=== PATIENT | female | born 1970 | race Hispanic/Latino ===

== ENCOUNTER → 2019-09-06 | Day surgery (SDC) | payer BC ==
[~2019-09-06] MED LIST: ACETAMINOPHEN 1000 MG/100 ML 100 ML IV ONE; AMOXICILLIN875 MG PO; BUPIVACAINE HCL 0.5% INJ 30 ML VIAL INJ ONE; DEXAMETHASONE SOD PHOS INJ 4 MG/ML VIAL ONE; FENTANYL CITRATE/PF 100MCG/2 ML INJ ONE; IBUPROFEN400 MG PO; LIDOCAINE HCL 2% LOCAL INJ 5 ML SDV VIAL INJ ONE; MIDAZOLAM HCL 2 MG/2 ML VIAL ONE; ONDANSETRON HCL INJ 2MG/ML 2ML 2 MG/ML VIAL ONE; PHENTERMINE H37.5 M1 PO; PROPOFOL IV EMULSION 10 MG/ML 20 ML VIAL ONE; SEVOFLURANE INHAL SOLN 250 ML PEN BTL ONE; TYLENOL PO
--- OUTSIDE RECORDS SUMMARY | 2019-09-06 07:02 | XMS REPORT | Summary of Care ---
Author Author Jodi Cain M.A. Unknown Address Unknown Phone Unavailable Care Team Providers Care Cherry Picker Operator Name Role Phone KERWIN Valladares, SYLWIA Unavailable Unavailable Jodi Cain M.A. Unavailable Unavailable BEVERLEY GONGORA, FERNANDO HAIRSTON Unavailable Unavailable FISH BYRD MD Unavailable Unavailable LYNNETTE ALMAZAN, LEEROY Beard Unavailable Unavailable KERWIN GONGORA, SYLWIA F Unavailable Unavailable Unavailable Unavailable Functional Status Name Dates Details Functional status health issues are not documented Status: Name Dates Details Cognitive status health issues are not documented Status: Problems Name Dates Details Limb pain (729.5, M79.609) Status: Active Tear of lateral meniscus of right knee, initial encounter (836.1, S83.281A) Status: Active Tear of medial meniscus of right knee, initial encounter (836.0, S83.241A) Status: Active Chronic back pain (724.5, M54.9) Status: Active Fracture of coccyx (805.6, S32.2XXA) Status: Active Chronic pain of right knee (719.46, M25.561) Status: Active Medications Name Dates Details Meloxicam 15 MG Oral Tablet TAKE 1 TABLET DAILY NEEDED. Quantity: 30 KERWIN M.D., SYLWIA * Start : 25-Aug-2018 Active Ibuprofen CAPS * Refills: 0 Active Aspirin 81 MG Oral Tablet Delayed Release 1 TABLET PO BID FOR 2 WEEEKS AFTER SURGERY; QTY:28 X TABLET DELAYED RELEASE; QTY :28 Tablet Delayed Release * Quantity: 28 Refills: 0 KERWIN M.D., SYLWIA * Start : 12-Nov-2018 Active Cephalexin 500 MG Oral Capsule TAKE 1 CAPSULE 3 TIMES DAILY THE NEXT DAY AFTER SURGERY ONE DAY ONLY; QTY: 3 X C APSULE * Quantity: 3 Refills: 0 KERWIN M.D., SYLWIA * Start : 12-Nov-2018 Active traMADol HCl - 50 MG Oral Tablet TAKE 1 TABLET EVERY 6 HOURS NEEDED. * Quantity: 40 Refills: 0 KERWIN M.D., SYLWIA * Start : 13-Nov-2018 Active TaperDex 6-Day 1.5 MG (21) Oral Tablet Therapy Pack USE DIRECTED ON THE BOX * Quantity: 21 Refills: 0 KERWIN Bangura., SYLWIA * Start : 26-Feb-2019 Active 21 Tablet Pack IBU 800 MG Oral Tablet TAKE 1 TABLET EVERY 8 HOURS NEEDED. * Quantity: 30 Refills: 0 KERWIN Valladares, SYLWIA * Start : 24-Mar-2019 Active Allergies and Adverse Reactions Name Dates Details Hydrocodone/Acetaminophen TABS (Allergy) Status: Active Past Medical History Name Dates Details History of hepatitis B virus infection (V12.09, Z86.19) Status: Resolved Procedures Procedure Dates Details MR Knee wo contrast 85620 Date: 03-Mar-2019 MRI Spine lumbar wo contrast 00105 Date: 03-Mar-2019 History of Knee Surgery Completed Immunization Name Dates Details Immunizations not documented Family History Name Dates Details Family history of hypertension (V17.49, Z82.49) Status: Active Family history of diabetes mellitus (V18.0, Z83.3) Status: Active Social History Name Dates Details - Status: Name Dates Details Smoker. current status unknown Vital Signs Date Test Result Details No Known Vitals to report Results Date Description Value Details Results not documented Plan of Care Name Dates Details Planned Observations Planned Goals not documented Interventions Provided Medication Changes* IBU 800 MG Oral Tablet - Start Instructions Name Dates Details Instructions not documented Encounters Appointment; ELLIOT SUGGS M.D. Encounter Diagnosis: Problem not documented On: 06-Aug-2018 13:30 Appointment; SYLWIA SURESH M.D. Encounter Diagnosis: Problem not documented On: 25-Aug-2018 12:45 Appointment; SYLWIA SURESH M.D. Encounter Diagnosis: Problem not documented On: 21-Sep-2018 9:15 Appointment; FERNANDO LOWERY M.D. Encounter Diagnosis: Problem not documented On: 06-Nov-2018 13:45 Appointment; SYLWIA SURESH M.D. Encounter Diagnosis: Problem not documented On: 13-Nov-2018 7:00 Appointment; LEEROY CHURCH P.A. Encounter Diagnosis: Problem not documented On: 19-Nov-2018 13:15 Appointment; SYLWIA SURESH M.D. Encounter Diagnosis: Problem not documented On: 26-Feb-2019 10:15
--- OUTSIDE RECORDS SUMMARY | 2019-09-06 07:02 | XMS REPORT ---
Author Author [facility] [place] Address Unknown Phone Unavailable Care Team Providers Care Diesel Roller Operator Name Role Phone DR LESA PAT Unavailable Unavailable DR SYLWIA SURESH Unavailable Unavailable Problems This patient has no known problems. Allergies, Adverse Reactions, Alerts This patient has no known allergies or adverse reactions. Medications This patient has no known medications. Encounters Start Date/Time End Date/Time Encounter Type Admission Type Attending [facility] Care Facility Care Department Encounter ID 2019-07-13 08:30:00 Inpatient LESA [facility]ENITE[facility] [id number] 2018-10-14 07:00:00 Inpatient SYLWIA HYTAT [facility] [id number] 2019-05-04 08:27:00 2019-05-04 12:01:00 Outpatient LESA BENITEZ [facility] [id number] 2018-11-13 06:07:00 2018-11-13 11:11:00 Outpatient SYLWIA HYATT [facility] [id number]
[2019-09-06 10:17] VITALS: BP 111/59
--- NOTE | 2019-09-06 11:47 | Operative Report ---
DATE OF PROCEDURE: 09/06/2019 SURGEON: Mervin Falk MD SLIP FILLER: None. PREOPERATIVE DIAGNOSIS: Right 3rd trigger finger. POSTOPERATIVE DIAGNOSIS: Right 3rd trigger finger. PROCEDURE: Release right 3rd trigger finger. INDICATIONS: The patient is a 49-year-old lady, who has clinic signs and symptoms consistent with right 3rd trigger finger. She has failed conservative management and would like to proceed with definitive intervention. The risks and benefits of a trigger finger release have been explained. She states she understands and wishes to proceed. PROCEDURE IN DETAIL: The patient was brought to the operating room and placed under general anesthetic. Her right upper extremity was prepped and draped in a sterile manner. She received prophylactic antibiotics. A preoperative time-out was performed. The extremity was exsanguinated and a proximal tourniquet was inflated to 250 mmHg. An incision was made along the course of the distal palmar crease in line with the right 3rd finger. The A1 juan was carefully exposed and released with a 15 blade surgical knife. Care was taken to make sure that a complete release was performed. The tendon was retracted from the wound and noted to have no further stenosing tenosynovitis. The wound was closed with 2 interrupted nylon stitches. A 1.5 mL of 0.5% Marcaine without epinephrine was injected around the incision. A sterile bandage was applied. The patient was extubated and transported to the recovery room in stable condition. Mervin Falk MD DR/MYRTLE /[id number]
== END | disposition home or self-care (01) ==
LOC: OR 06:58 → EDSTATUS 10:00
PROVIDERS: ATTEND Specialist
DX: M65.331 Trigger finger, right middle finger (principal); Z88.5 Allergy status to narcotic agent; E78.00 Pure hypercholesterolemia, unspecified; Z80.9 Family history of malignant neoplasm, unspecified; Z83.3 Family history of diabetes mellitus; Z82.49 Family history of ischemic heart disease and other diseases of the circulatory system; Z82.3 Family history of stroke; Z01.810 Encounter for preprocedural cardiovascular examination
CPT/HCPCS: 26055; 93005; J0131; J1100; J2001; J2250; J2405; J2704; J3010

== ENCOUNTER → 2024-12-31 | Outpatient (REF) | payer OTHER ==
[~2024-12-31] MED LIST changes: -ACETAMINOPHEN 1000 MG/100 ML 100 ML IV ONE; -BUPIVACAINE HCL 0.5% INJ 30 ML VIAL INJ ONE; -DEXAMETHASONE SOD PHOS INJ 4 MG/ML VIAL ONE; -FENTANYL CITRATE/PF 100MCG/2 ML INJ ONE; -LIDOCAINE HCL 2% LOCAL INJ 5 ML SDV VIAL INJ ONE; -MIDAZOLAM HCL 2 MG/2 ML VIAL ONE; -ONDANSETRON HCL INJ 2MG/ML 2ML 2 MG/ML VIAL ONE; -PROPOFOL IV EMULSION 10 MG/ML 20 ML VIAL ONE; -SEVOFLURANE INHAL SOLN 250 ML PEN BTL ONE
== END ==
LOC: US 08:39
PROVIDERS: ATTEND Otolaryngology
DX: E04.1 Nontoxic single thyroid nodule (principal); D44.0 Neoplasm of uncertain behavior of thyroid gland
CPT/HCPCS: 10005; 88172; 88173; 88305